=== PATIENT | female | born 1940 | race Two or more races ===

== ENCOUNTER 2016-08-29 10:15 | Outpatient (RCR) | payer OTHER ==
[~2016-08-29 10:15] MED LIST: NORCO 10-325 T1 EACH ORAL
== END 2016-09-12 | disposition home or self-care (01) ==
LOC: PTY 10:15
DX: Z96.611 Presence of right artificial shoulder joint (principal); M62.81 Muscle weakness (generalized)
CPT/HCPCS: 97110; 97162; G0283

== ENCOUNTER 2016-09-14 10:15 | Outpatient (RCR) | payer OTHER | END 2016-10-13 | disposition home or self-care (01) | LOC: PTY 10:15 | DX: M62.81 Muscle weakness (generalized) (principal) | CPT/HCPCS: 97110; 97140; G0283 ==

== ENCOUNTER 2016-10-17 11:00 | Outpatient (RCR) | payer OTHER | END 2016-11-12 | disposition home or self-care (01) | LOC: PTY 11:00 | DX: M62.81 Muscle weakness (generalized) (principal) | CPT/HCPCS: 97035; 97110; 97140; G0283 ==

== ENCOUNTER 2016-11-14 11:00 | Outpatient (RCR) | payer OTHER | END 2016-12-13 | disposition home or self-care (01) | LOC: PTY 11:00 | DX: M62.81 Muscle weakness (generalized) (principal) | CPT/HCPCS: 97110; 97140; G0283 ==

== ENCOUNTER 2016-12-22 11:00 | Outpatient (RCR) | payer OTHER | END 2017-01-12 | disposition home or self-care (01) | LOC: PTY 11:00 | DX: M62.81 Muscle weakness (generalized) (principal) | CPT/HCPCS: 97110; G0283 ==

== ENCOUNTER → 2017-05-15 | Outpatient (RCR) | payer OTHER | END | disposition home or self-care (01) | LOC: PTY 04-18 14:00 | DX: S90.02XA Contusion of left ankle, initial encounter (principal); M62.81 Muscle weakness (generalized); Z96.652 Presence of left artificial knee joint; M25.562 Pain in left knee; M25.572 Pain in left ankle and joints of left foot; W22.09XA Striking against other stationary object, initial encounter; Y92.89 Other specified places as the place of occurrence of the external cause | CPT/HCPCS: 97110; 97140; 97162; G0283 ==

== ENCOUNTER 2017-06-12 14:11 | Outpatient (RCR) | payer OTHER | END 2017-06-14 | disposition home or self-care (01) | LOC: PTY 14:11 | DX: S90.02XD Contusion of left ankle, subsequent encounter (principal); Z96.652 Presence of left artificial knee joint | CPT/HCPCS: 97110; G0283 ==

== ENCOUNTER 2017-07-13 11:00 | Outpatient (RCR) | payer OTHER | END 2017-07-15 | disposition home or self-care (01) | LOC: PTY 11:00 | DX: S90.02XD Contusion of left ankle, subsequent encounter (principal); Z96.652 Presence of left artificial knee joint | CPT/HCPCS: 97110; G0283 ==

== ENCOUNTER 2017-07-24 13:00 | Outpatient (RCR) | payer OTHER | END 2017-08-15 | disposition home or self-care (01) | LOC: PTY 13:00 | DX: S90.02XD Contusion of left ankle, subsequent encounter (principal); Z96.652 Presence of left artificial knee joint ==

== ENCOUNTER 2017-08-16 10:43 | Outpatient (RCR) | payer OTHER | END 2017-09-12 | disposition home or self-care (01) | LOC: PTY 10:43 | DX: S90.02XD Contusion of left ankle, subsequent encounter (principal); Z96.652 Presence of left artificial knee joint; M25.562 Pain in left knee ==